=== PATIENT | male | born 1940 | race Caucasian/White ===

== ENCOUNTER → 2020-02-19 14:51 | Outpatient (CLI) | payer MEDICARE, BC, SELFPAY | PROVIDERS: PCP Family Medicine; Visit Provider Family Medicine | DX: Z03.818 Encounter for observation for suspected exposure to other biological agents ruled out (principal) | CPT/HCPCS: U0003 ==

== ENCOUNTER 2020-05-28 15:55 | Emergency (ER) | payer MEDICARE, BC, SELFPAY ==
[2020-05-28 15:57] VITALS: BP 153/84; PULSE 64; RESP 16; TEMP 37.1; O2SAT 98; BMI 29.5
--- NOTE | 2020-05-28 16:18 | CT_ITS ---
PROCEDURE: CT ABDOMEN PELVIS WO CON CLINICAL INDICATION: flank pain Right flank pain with hematuria COMPARISON: No exams were available for comparison TECHNIQUE: Axial images obtained with sagittal and coronal reformats. All CT scans at the facility use one or more dose reduction, viz: automated exposure control, ma/kV adjustment per patient size (including targeted exams where dose is matched to indication, i.e. head), or iterative reconstruction technique. FINDINGS: LOWER THORAX: Scarring and/or atelectatic changes are present in the lung bases with changes of COPD. Coronary artery calcifications are present. There is a small hiatal hernia. ABDOMEN & PELVIS: The gallbladder has an unremarkable appearance. There are however scattered calcifications in the the region of the biliary tree in the central aspect of the liver which could be due to small stones within the biliary radicles. Multiple punctate splenic calcifications are present consistent with old granulomatous disease. There is some calcification also in the head of the pancreas region. The adrenal glands are unremarkable. A hyperdense nodule projects along the anterior aspect of the left kidney measuring 2 cm at 28 Hounsfield units. This may be due to proteinaceous or hemorrhagic cyst. Follow-up ultrasound recommended. There is a 3.4 cm right renal cyst. There is stranding of the perinephric renal fat on both sides. A stone is present in the mid aspect of the right ureter at 5 mm with mild dilatation of the collecting system proximal to this area.. This is at the L4-5 level. Status post right hemicolectomy with patent anastomosis between the large and small bowel No intestinal obstruction or free air. There are multiple colonic diverticula. No evidence of diverticulitis. No intestinal obstruction or free air. There is dense calcification of the aortoiliac vessels with tortuosity there are degenerative changes in the lumbar spine. Moderate wedging is present involving T11 and T12 vertebral body. There is mild retropulsion of the posterior superior aspect of T12 of approximately 3 mm. There is a small umbilical hernia containing fat. There is an old left superior pubic ramus fracture IMPRESSION: 1. 5 mm stone in the mid aspect of the right ureter with mild right hydroureteronephrosis. 2. Hyperdense nodule of the left kidney. Suggest ultrasound for further evaluation. This could represent a proteinaceous cyst or hemorrhagic cyst. Neoplasm however is not excluded. 3. Calcifications within the biliary tree in the central aspect of the liver possibly due to small stones. Follow-up suggested. 4. Other nonacute findings as described above. 5. Colonic diverticulosis without diverticulitis. Status post right hemicolectomy 6. Other nonacute findings as described above. Dictated by: Gabriel Birmingham MD 05/28/2020 18:36 Gabriel Birmingham MD in [place] 05/28/2020 18:36
[2020-05-28 16:45] LABS: Alanine Aminotransferase 34 U/L (12-78); Albumin Level 4.3 g/dl (3.5-5.0); Albumin/Globulin Ratio 1.5 (1.1-1.8); Alkaline Phosphatase 70 U/L (38-126); Aspartate Amino Transferase 38 U/L (17-59); Blood Urea Nitrogen 23 mg/dl (9-20); Calcium 9.4 mg/dl (8.4-10.2); Carbon Dioxide 24 mmol/L (22.0-30.0); Chloride 105 mmol/L (98-107); Creatinine Clearance Estimated 66 mL/min (50-200); Estimated Glomerular Filt Rate 81 ml/min (>60); GFR (African American) 98 ML/MIN (>60); Globulin 2.9 g/dL (1.3-3.2); Glucose 141 mg/dl (74-100); Sodium 139 mmol/L (136-145); Total Protein,Serum 7.2 g/dl (6.3-8.2)
[2020-05-28 16:50] VITALS: BP 110/60; PULSE 52; RESP 18; O2SAT 92
--- NOTE | 2020-05-28 16:52 | HMH.EDGENADL ---
ED Disposition Clinical Impression: Right ureteral calculus Disposition: Home, Self-Care Condition on Discharge: Good Instructions: DI for Kidney Stones Additional Instructions: Additional instructions for KIDNEY STONE (URETERAL CALCULUS): See a urologist at the [facility] as soon as possible for further evaluation. Call for appointment. drink plenty of fluids. Strain your urine and save any stones you catch. Return immediately if you develop a fever or have uncontrollable vomiting or uncontrollable pain. Additional instructions for CONTROLLED SUBSTANCES: You have been prescribed a medication that is a controlled substance. Controlled substances include pain medications known as opiates and sedative nerve medications known as benzodiazepines. Tramadol, fioricet, and gabapentin are also controlled substances. Some common opiates include: Codeine (such as Tylenol #3) Hydrocodone (Vicodin, Lortab, Lorcet, [place]) Oxycodone (Percocet, Percodan, Oxycodone, Oxy IR) Some common benzodiazepines include: Diazepam (Valium) Lorazepam (Ativan) Alprazolam (Xanax) Clonazepam (Klonopin) Oxazepam (Serax) All of these controlled substances are highly addictive and frequently abused. Misuse can and frequently does lead to addiction as well as overdose and . Medication should be stored in a locked cabinet or other secure storage unit. Do not store the medication in a motor vehicle. Short term supplies, 3 days or less, are prescribed because of the highly addictive nature of the medication. Any of the controlled substance medication NOT taken should be disposed of properly and NOT SAVED. The recommended method of disposing of unused medications is: Place the medicines in a sealable plastic bag. If the medicine is a solid, crush it or add water to dissolve it. Add something undesirable (cat litter, coffee grounds, etc.) Dispose of sealed bag in household trash Do not flush or pour unused medicines down a sink or drain. Controlled substances should not be shared, given away or sold. Because of the addictive nature and frequent abuse, these medications are sometimes stolen. These medications should be kept in a safe place where they cannot be stolen. Do not keep them in your car or purse. Lost or stolen prescriptions for controlled substances WILL NOT BE REFILLED in this emergency department, regardless of whether a police report was filed. Prescriptions: Tramadol HCl [Tramadol 50mg Tab] 50 mg PO Q6HP PRN #12 tab PRN Reason: Moderate Pain Prescription Printed Tamsulosin HCl [Flomax 0.4mg capsule] 0.4 mg PO HS #10 cap.er.24h Prescription Printed Ondansetron [Zofran 4mg ODT] 4 mg PO TIDP PRN #10 tab.rapdis PRN Reason: Nausea And Vomiting Prescription Printed Referrals: Provider,Referral, MD [Primary Care Provider] - - Critical Care Critical Care Time: No Attestation: On 05/28/20, the high probability of a clinically significant, sudden or life threatening deterioration of the following system(s) required my full and direct attention, intervention and personal management. The time I documented below is in addition to time spent performing reported procedures but includes the following listed in this critical care notation. Medical Decision Making - Thomas Inquiry Pt receiving controlled substance: Yes Thomas was queried for this patient: Yes Reference #:: [id number] Risks and benefits of using a controlled substance: were discussed with pt by me Comment: 0 rxs. Vital Signs: 05/28/20 15:57 05/28/20 16:50 Temperature 98.8 F Temperature Source Oral Pulse Rate [Radial] 64 52 L Respiratory Rate 16 18 Blood Pressure [Right Arm] 153/84 H 110/60 Blood Pressure Mean [Right Arm] 107 76 Blood Pressure Source [Right Arm] Automatic Cuff Blood Pressure Position [Right Arm] Sitting 02 Sat by Pulse Oximetry 98 92 L Oxygen Delivery Method Room Air Room Air - Lab Data Lab Results 05/18
[2020-05-28 17:00] LABS: Microscopic, Urine URINE MICROSCOPIC (MICROSCOPIC)
--- NOTE | 2020-05-28 17:00 | PC.NURSE ---
pt to radiology
[2020-05-28 17:03] LABS: Appearance,Urine CLOUDY (Clear); Blood, Urine 3+ (Negative); Color,Urine DK YELLOW (Yellow); Glucose,Urine (UA) Negative (Negative); Ketones,Urine TRACE (Negative); Leukocyte Esterase,Urine Negative (Negative); Nitrate,Urine Negative (Negative); PH,Urine 5.5 (5.0-8.5); Protein,Urine 1+ (Negative); Specific Gravity, Urine >= 1.030 (1.005-1.030); Urobilinogen,Urine 0.2 EU/dl (0.2)
[2020-05-28 17:09] LABS: Bilirubin,Urine Negative (Negative)
[2020-05-28 17:13] LABS: Basophils % 0.5 % (0.1-2.0); Eosinophils # 0.2 K/mm3 (0.0-0.4); Hematocrit 47.8 % (42.0-52.0); Hemoglobin 15.7 g/dL (14.1-18.0); Lymphocytes # 1.5 K/mm3 (0.7-4.5); Lymphocytes % 28.7 % (10-50); Mean Corpuscular HGB Conc 32.8 g/dL (31.8-35.4); Mean Corpuscular Hemoglobin 31.8 pg (27.0-31.2); Mean Corpuscular Volume 96.9 fl (80-94); Mean Platelet Volume 7.8 fl (7.4-10.4); Monocytes # 0.3 K/mm3 (0.1-1.0); Monocytes % 6.3 % (1.7-9.3); Neutrophils # 3.2 K/mm3 (1.8-7.8); Neutrophils % 61.4 % (37.0-80.0); Platelet Count 152 K/mm3 (142-424); Red Blood Count 4.93 M/mm3 (4.60-6.20); White Blood Count 5.2 K/mm3 (4.8-10.8)
[2020-05-28 17:58] LABS: RBC,Urine 20-50 #/hpf (0-3)
[2020-05-28 17:59] LABS: Amorphous Sediment,Urine 3+ /lpf; Bacteria,Urine 3+ /lpf
[2020-05-28 18:18] VITALS: BP 109/62; PULSE 56; RESP 16; TEMP 36.6; O2SAT 98
== END 2020-05-28 18:20 | disposition home or self-care (01) ==
PROVIDERS: Emergency Provider Emergency Medicine
DX: N20.1 Calculus of ureter (principal); Z87.442 Personal history of urinary calculi; Z88.2 Allergy status to sulfonamides; Z88.5 Allergy status to narcotic agent; Z79.899 Other long term (current) drug therapy
CPT/HCPCS: 74176; 80053; 81001; 85025; 87086; 96365; 96375; 99283; J2405

== ENCOUNTER 2020-05-31 20:40 | Emergency (ER) | payer MEDICARE, BC, SELFPAY ==
[2020-05-31 20:47] VITALS: BP 156/83; PULSE 77; RESP 16; TEMP 36.6; O2SAT 94; BMI 29.5
[2020-05-31 21:00] VITALS: BP 139/74; PULSE 72; RESP 17; O2SAT 94
--- NOTE | 2020-05-31 21:13 | CT_ITS ---
Procedure: CT ABDOMEN PELVIS WO CON Referring Doctor: Michel Marroquin Patient Age:79Y CLINICAL INDICATION: flank pain abdominal pain with nausea and vomiting 2 weeks. Flank pain. Recent 05/28/2020 CT diagnosed right ureteral stone. COMPARISON: CT CT ABDOMEN PELVIS WO CON from 05/28/2020 TECHNIQUE: No IV contrast. No oral contrast Helical axial images obtained with sagittal and coronal reformats. All CT scans at the facility use one or more dose reduction, viz: automated exposure control, ma/kV adjustment per patient size (including targeted exams where dose is matched to indication, i.e. head), or iterative reconstruction technique. FINDINGS: Lower thorax: Bibasilar parenchymal scarring and atelectasis. Additional atelectasis and minimal airspace disease at left posterior sulcus hyper grass since previous study.. Mild cardiomegaly. Small hiatal hernia ABDOMEN: Liver: No masses or biliary dilatation. Gallbladder: History states cholecystectomy but there is a thin fluid-filled structure in the gallbladder fossa. Could reflect residual a generous cystic duct... Of there is some small calcifications centrally at the liver. More likely vascular calcification and less likely small stones within central biliary duct. Common duct normal diameter 2 Pancreas: No masses or peripancreatic fluid collections. Spleen: Normal size; numerous scattered granulomatous calcifications Adrenals: unremarkable ----- tract - Right obstructive uropathy features more pronounced today versus recent CT 05/28/2020 However there has been significant distal migration right ureteral stone since recent CT 05/28/2020.. Previously it was to the right of L4/5 level, but now has passed distally and seen projected over the posterior aspect of urinary bladder-most likely on the verge of passing through the final final lips of right UVJ, if not having just passed through already.. This stone measuring 3.4 x 4.4 mm on axial image 93.. Of there is more pronounced now moderate hydronephrosis at the right kidney as well as diffuse dilatation of the right ureter-both features have notably progressed since previous CT study . Other observations right kidney: Tiny faint just over 1 mm calculus seen at mid right kidney axial image 44. Barely evident. Stable benign appearing cyst posterior aspect right kidney again extending off the posterior aspect of right kidney, measures up to 3.2cm Left kidney: No calculi seen at the left kidney. There is a 2.1 cm exophytic hyperdense nodule or hyperdense cyst extending anterior to the left kidney. this most likely reflects a hemorrhagic cyst of but warrants follow-up.(Bosniak 2 cyst) Again recommend follow-up ultrasound as suggestion on previous CT . There is also a 12.8 mm low-density benign-appearing cyst lower pole left kidney. Mild stranding at the perinephric fat bilaterally again noted Left ureter. Unremarkable. Urinary bladder: As described above the calculus is projected over the right posterior aspect of urinary bladder. Otherwise bladder demonstrates subtle posterior wall thickening to the left, as suggested on sagittal image 55-53.. Also borderline/mild wall thickening anteriorly at urinary bladder is seen on axial image 94. Warrants follow-up UA for these features as well Mild enlarged prostate with central calcification, measures up to 4 cm height and wide . GI tract.-------- Likely small sliding hiatal hernia Stomach. Fluid filled distended stomach with fluid at the distal esophagus reflecting reflux, possible hiatal hernia small bowel: A few small to moderate air-fluid levels at the proximal and mid small bowel with slight increased fluid but could reflect a minor ileus but unimpressive. . No varun
[2020-05-31 21:23] LABS: Alanine Aminotransferase 21 U/L (12-78); Albumin Level 4.3 g/dl (3.5-5.0); Albumin/Globulin Ratio 1.5 (1.1-1.8); Alkaline Phosphatase 63 U/L (38-126); Anion Gap 13.6 mEq/L (5-15); Aspartate Amino Transferase 24 U/L (17-59); Basophils % 0.2 % (0.1-2.0); Bilirubin,Total 1.2 mg/dl (0.2-1.3); Blood Urea Nitrogen 23 mg/dl (9-20); Calcium 9.2 mg/dl (8.4-10.2); Carbon Dioxide 29 mmol/L (22.0-30.0); Chloride 97 mmol/L (98-107); Creatinine Clearance Estimated 51 mL/min (50-200); Eosinophils # 0.1 K/mm3 (0.0-0.4); Eosinophils % 0.9 % (0.1-12.0); Estimated Glomerular Filt Rate 53 ml/min (>60); GFR (African American) 64 ML/MIN (>60); Globulin 2.9 g/dL (1.3-3.2); Glucose 126 mg/dl (74-100); Hematocrit 45.4 % (42.0-52.0); Hemoglobin 15.1 g/dL (14.1-18.0); Lymphocytes # 0.8 K/mm3 (0.7-4.5); Lymphocytes % 13.5 % (10-50); Mean Corpuscular HGB Conc 33.1 g/dL (31.8-35.4); Mean Corpuscular Hemoglobin 32.1 pg (27.0-31.2); Mean Corpuscular Volume 97.1 fl (80-94); Mean Platelet Volume 8.5 fl (7.4-10.4); Monocytes # 0.5 K/mm3 (0.1-1.0); Monocytes % 7.9 % (1.7-9.3); Neutrophils # 4.5 K/mm3 (1.8-7.8); Neutrophils % 77.4 % (37.0-80.0); Platelet Count 134 K/mm3 (142-424); Potassium 4.6 mmoL/L (3.5-5.1); Red Blood Count 4.68 M/mm3 (4.60-6.20); Red Cell Distribution Width 13.5 % (11.5-17.5); Sodium 135 mmol/L (136-145); Total Protein,Serum 7.2 g/dl (6.3-8.2); White Blood Count 5.8 K/mm3 (4.8-10.8)
[2020-05-31 21:30] VITALS: BP 132/78; PULSE 70; RESP 17; O2SAT 93
[2020-05-31 22:00] VITALS: BP 124/66; PULSE 70; RESP 17; O2SAT 94
[2020-05-31 22:30] VITALS: BP 126/64; PULSE 74; RESP 17; O2SAT 95
--- NOTE | 2020-05-31 22:36 | PC.NURSE ---
Cara speaking with Dr.Crowe amrx this time.
--- NOTE | 2020-05-31 22:52 | HMH.EDGENADL ---
ED Disposition Clinical Impression: Kidney stones Disposition: Home, Self-Care Condition on Discharge: Good Instructions: DI for Acute Pain -- Adult Additional Instructions: Please follow-up with Dr. Wei on Tuesday. Referrals: Tino Gordon [Primary Care Provider] - - Critical Care Critical Care Time: No Attestation: On 05/31/20, the high probability of a clinically significant, sudden or life threatening deterioration of the following system(s) required my full and direct attention, intervention and personal management. The time I documented below is in addition to time spent performing reported procedures but includes the following listed in this critical care notation. Medical Decision Making - Medical Records Medical records reviewed: Yes: I reviewed the patient's medical records. - Thomas Inquiry Pt receiving controlled substance: No Vital Signs: 05/31/20 20:47 05/31/20 21:00 05/31/20 21:30 Temperature 97.9 F Temperature Source Oral Pulse Rate [Right] 77 72 70 Respiratory Rate 16 17 17 Blood Pressure [Right Arm] 156/83 H 139/74 132/78 Blood Pressure Mean [Right Arm] 107 95 96 Blood Pressure Source [Right Arm] Automatic Cuff Automatic Cuff Automatic Cuff Blood Pressure Position [Right Arm] Supine Supine Supine 02 Sat by Pulse Oximetry 94 L 94 L 93 L Oxygen Delivery Method Room Air Room Air Room Air 05/31/20 22:00 05/31/20 22:30 Temperature Temperature Source Pulse Rate [Right] 70 74 Respiratory Rate 17 17 Blood Pressure [Right Arm] 124/66 126/64 Blood Pressure Mean [Right Arm] 85 84 Blood Pressure Source [Right Arm] Automatic Cuff Automatic Cuff Blood Pressure Position [Right Arm] Supine Supine 02 Sat by Pulse Oximetry 94 L 95 Oxygen Delivery Method Room Air Room Air - Lab Data Lab results reviewed: Yes: I reviewed the patient's lab results. Lab Results 05/31/20 21:00: WBC 5.8, RBC 4.68, Hgb 15.1, Hct 45.4, MCV 97.1 H, MCH 32.1 H, MCHC 33.1, RDW 13.5, Plt Count 134 L, MPV 8.5, Neut % (Auto) 77.4, Lymph % (Auto) 13.5, [place] % (Auto) 7.9, Eos % (Auto) 0.9, Baso % (Auto) 0.2, Neut # (Auto) 4.5, Lymph # (Auto) 0.8, [place] # (Auto) 0.5, Eos # (Auto) 0.1, Baso # (Auto) 0.0 05/31/20 21:00: Sodium 135 L, Potassium 4.6, Chloride 97 L, Carbon Dioxide 29, Anion Gap 13.6, BUN 23 H, Creatinine 1.30 H, Estimated Creat Clear 51, Estimated GFR 53 L, Est GFR ( Amer) 64, Glucose 126 H, Calcium 9.2, Total Bilirubin 1.2, AST 24, ALT 21, Alkaline Phosphatase 63, Total Protein 7.2, Albumin 4.3, Globulin 2.9, Albumin/Globulin Ratio 1.5 Result diagrams: 05/31/20 21:00 05/31/20 21:00 Orders (Tests/Meds): ED MEDICATIONS Generic Name Dose Route Start Last Admin Trade Name Freq PRN Reason Stop Dose Admin Sodium Chloride 1,000 mls @ 999 mls/hr 05/31/20 21:15 05/31/20 21:08 Sod Chlor 0.9% 1000ml Bag IV 05/31/20 22:15 999 mls/hr .[id number] MONIKA Administration Discontinued Medications Generic Name Dose Route Start Last Admin Trade Name Freq PRN Reason Stop Dose Admin Ketorolac Tromethamine 30 mg 05/31/20 21:05 05/31/20 21:08 Ketorolac 30mg/Ml Vial IV 05/31/20 21:06 30 mg ONCE ONE Administration Ondansetron HCl 4 mg 05/31/20 21:05 05/31/20 21:08 Ondansetron 4mg/2ml Vial IV 05/31/20 21:06 4 mg ONCE ONE Administration ORDERS Category Date Time Status CT abdomen pelvis wo con Stat Cat Scan 05/31/20 21:13 Taken - CT Data CT Scan: Abdomen, Pelvis Time Received: 22:00 Preliminary Findings: Abnormal (5 mm stone in the right UVJ similar to previous finding on Tuesday.) - Reevaluation(s) Time: 22:57 Reevaluation #1: Patient flu improved with fluids antiemetics and pain medication Medical Decision Narrative: I spoke to Dr. Wei about this patient stating that there is been no movement of the stone since Tuesday he agreed to see the patient in his office on [place] morning. General Adult HPI - General Chief complaint: PAIN Stated compl
[2020-05-31 23:31] VITALS: BP 137/69; PULSE 71; RESP 16; TEMP 36.6; O2SAT 94
== END 2020-05-31 23:34 | disposition home or self-care (01) ==
PROVIDERS: Emergency Provider Family Medicine; PCP Internal Medicine Nephrology
DX: N13.2 Hydronephrosis with renal and ureteral calculous obstruction (principal); I10 Essential (primary) hypertension; E78.5 Hyperlipidemia, unspecified; Z87.891 Personal history of nicotine dependence; Z79.899 Other long term (current) drug therapy; Z88.2 Allergy status to sulfonamides; Z88.5 Allergy status to narcotic agent
CPT/HCPCS: 74176; 80053; 85025; 96365; 96375; 99283; J2405

== ENCOUNTER 2021-08-13 15:50 | Emergency (ER) | payer MEDICARE, BC, OTHER, SELFPAY ==
[2021-08-13 15:52] VITALS: BP 145/85; PULSE 109; RESP 18; TEMP 37.8; O2SAT 94; BMI 29.5
--- NOTE | 2021-08-13 16:03 | XR_ITS ---
PROCEDURE INFORMATION: Exam: XR Chest Exam date and time: 08/13/2021 4:03 PM Age: 80 years old Clinical indication: Cough TECHNIQUE: Imaging protocol: XR of the chest. Views: 1 view. COMPARISON: CR XR CHEST 2V 07/01/2019 6:45 AM FINDINGS: Lungs: Atelectasis and/or early infiltrative changes noted within the right lung base. Bilateral hyperinflation is present. Pleural spaces: Unremarkable. No pleural effusion. No pneumothorax. Heart/Mediastinum: Heart demonstrates mild diffuse enlargement. Vasculature: The vasculature demonstrates diffuse moderate atherosclerotic calcification. Bones/joints: The thoracic spine demonstrates mild degenerative changes at multiple levels. IMPRESSION: 1. Atelectasis and/or early infiltrative changes noted within the right lung base. 2. Bilateral hyperinflation is present. 3. Mild cardiomegaly.
--- NOTE | 2021-08-13 16:04 | HMH.EDGENADL ---
ED Disposition Clinical Impression: COVID-19 Disposition: Home, Self-Care Condition on Discharge: Fair Instructions: DI for COVID-19 (Suspected or Confirmed ) Additional Instructions: You have been evaluated for cough, body aches, fatigue, diagnosed with COVID-19. Please continue to monitor your pulse oximeter level at home. Use supplemental oxygen if level is less than 92%. Take steroids daily. Zofran as needed for nausea. Follow-up with your primary care doctor for symptom recheck within 24 hours. Return to the emergency department once for any new or worsening symptoms, shortness of breath or other concerns. Prescriptions: dexAMETHasone [Dexamethasone] 6 mg PO DAILY #5 tab Transmission Status: Received by [facility] #[id number] ondansetron HCL [Ondansetron 4mg tab*] 4 mg PO Q6 PRN #12 tab PRN Reason: Nausea Transmission Status: Received by [facility] #[id number] Referrals: Provider,Referral, [Primary Care Provider] - Time of Disposition: 19:33 - Critical Care Critical Care Time: No Attestation: On , the high probability of a clinically significant, sudden or life threatening deterioration of the following system(s) required my full and direct attention, intervention and personal management. The time I documented below is in addition to time spent performing reported procedures but includes the following listed in this critical care notation. Medical Decision Making - Medical Records Medical records reviewed: Yes: I reviewed the patient's medical records. - Thomas Inquiry Pt receiving controlled substance: No Vital Signs: 08/13/21 15:52 08/13/21 18:00 08/13/21 18:31 Temperature 100.0 F H Temperature Source Oral Pulse Rate 100 H 96 H Pulse Rate [Left Radial] 109 H Respiratory Rate 18 Blood Pressure 133/77 139/79 Blood Pressure [Right Arm] 145/85 H Blood Pressure Mean [Right Arm] 105 Blood Pressure Source Blood Pressure Source [Right Arm] Automatic Cuff Blood Pressure Position Blood Pressure Position [Right Arm] Sitting 02 Sat by Pulse Oximetry 94 L 92 L 92 L Oxygen Delivery Method Room Air 08/13/21 20:16 Temperature 98.5 F Temperature Source Oral Pulse Rate 88 Pulse Rate [Left Radial] Respiratory Rate 22 Blood Pressure 142/76 H Blood Pressure [Right Arm] Blood Pressure Mean [Right Arm] Blood Pressure Source Automatic Cuff Blood Pressure Source [Right Arm] Blood Pressure Position Sitting Blood Pressure Position [Right Arm] 02 Sat by Pulse Oximetry Oxygen Delivery Method Room Air - Lab Data Lab Results 08/13/21 16:18: WBC 7.2, RBC 5.30, Hgb 17.3, Hct 52.2 H, MCV 98.3 H, MCH 32.5 H, MCHC 33.1, RDW 13.5, Plt Count 147, MPV 8.5, Neut % (Auto) 89.8 H, Lymph % (Auto) 4.9 L, [place] % (Auto) 3.9, Eos % (Auto) 0.7, Baso % (Auto) 0.7, Neut # (Auto) 6.5, Lymph # (Auto) 0.4 L, [place] # (Auto) 0.3, Eos # (Auto) 0.1, Baso # (Auto) 0.1, Total Counted 100, Neutrophils % (Manual) 86 H, Lymphocytes % (Manual) 9 L, Monocytes % (Manual) 5, Platelet Estimate Normal, RBC Morphology Normal 08/13/21 16:18: Sodium 136, Potassium 4.4, Chloride 104, Carbon Dioxide 24, Anion Gap 12.4, BUN 19, Creatinine 0.80, Estimated Creat Clear 65, Estimated GFR 93, Est GFR ( Amer) 113, Glucose 110 H, Calcium 8.9, Total Bilirubin 1.2, AST 39, ALT 26, Alkaline Phosphatase 64, Total Protein 7.6, Albumin 4.5, Globulin 3.1, Albumin/Globulin Ratio 1.5, Lipase 83 08/13/21 16:18: Influenza Type A Ag Negative, Influenza Type B Ag Negative 08/13/21 16:18: SARS-CoV-2 IgG Ab (Rapid) Positive A, SARS-CoV-2 IgM Ab (Rapid) Negative 08/13/21 17:21: SARS-CoV-2 (PCR) Detected A, Influenza A Untype (PCR) Not detected, Influenza Type B (PCR) Not detected Result diagrams: 08/13/21 16:18 08/13/21 16:18 Orders (Tests/Meds): ED MEDICATIONS Discontinued Medications Generic Name Dose Route Start Last Admin Trade Name Freq PRN Reason Stop Dose Admin Acetaminophen 650 mg 08/13/21 16:13 08/13/21
--- NOTE | 2021-08-13 16:08 | PC.NURSE ---
Patient given ice chips and ice water at bedside.
--- NOTE | 2021-08-13 16:19 | PC.NURSE ---
Radiology at bedside
[2021-08-13 16:48] LABS: Basophils # 0.1 K/mm3 (0-0.2); Basophils % 0.7 % (0.1-2.0); Eosinophils # 0.1 K/mm3 (0.0-0.4); Eosinophils % 0.7 % (0.1-12.0); Hematocrit 52.2 % (42.0-52.0); Hemoglobin 17.3 g/dL (14.1-18.0); Lymphocytes # 0.4 K/mm3 (0.7-4.5); Lymphocytes % 4.9 % (10-50); Mean Corpuscular HGB Conc 33.1 g/dL (31.8-35.4); Mean Corpuscular Hemoglobin 32.5 pg (27.0-31.2); Mean Corpuscular Volume 98.3 fl (80-94); Mean Platelet Volume 8.5 fl (7.4-10.4); Monocytes # 0.3 K/mm3 (0.1-1.0); Monocytes % 3.9 % (1.7-9.3); Neutrophils # 6.5 K/mm3 (1.8-7.8); Neutrophils % 89.8 % (37.0-80.0); Platelet Count 147 K/mm3 (142-424); Red Cell Distribution Width 13.5 % (11.5-17.5); White Blood Count 7.2 K/mm3 (4.8-10.8)
[2021-08-13 16:53] LABS: MANUAL DIFFERENTIAL MANUAL DIFFERENTIAL (MANUAL DIFF)
[2021-08-13 16:57] LABS: Chloride 104 mmol/L (98-107); Potassium 4.4 mmoL/L (3.5-5.1); Sodium 136 mmol/L (136-145)
[2021-08-13 16:59] LABS: Alanine Aminotransferase 26 U/L (12-78); Aspartate Amino Transferase 39 U/L (17-59); Blood Urea Nitrogen 19 mg/dl (9-20); Creatinine Clearance Estimated 65 mL/min (50-200); Estimated Glomerular Filt Rate 93 ml/min (>60); GFR (African American) 113 ML/MIN (>60)
[2021-08-13 17:00] LABS: Albumin Level 4.5 g/dl (3.5-5.0); Albumin/Globulin Ratio 1.5 (1.1-1.8); Alkaline Phosphatase 64 U/L (38-126); Anion Gap 12.4 mEq/L (5-15); Bilirubin,Total 1.2 mg/dl (0.2-1.3); Calcium 8.9 mg/dl (8.4-10.2); Carbon Dioxide 24 mmol/L (22.0-30.0); Globulin 3.1 g/dL (1.3-3.2); Glucose 110 mg/dl (74-100); Lipase 83 U/L (23-300); Total Protein,Serum 7.6 g/dl (6.3-8.2)
[2021-08-13 17:16] LABS: Coronavirus 19 IgG Antibody Positive (Negative); Coronavirus 19 IgM Antibody Negative (Negative)
[2021-08-13 17:20] LABS: Lymphocytes % 9 % (10-50); Monocytes % 5 % (2-9); Neutrophils % 86 % (42-76); Platelet Estimate Normal; RBC Morphology Normal; Total Cells Counted 100
[2021-08-13 17:23] LABS: Influenza A, PCR Not Detected (NotDetected); Influenza B, PCR Not Detected (NotDetected)
[2021-08-13 18:00] VITALS: BP 133/77; PULSE 100; O2SAT 92
[2021-08-13 18:15] LABS: Coronavirus 19, PCR Detected (NotDetected)
[2021-08-13 18:31] VITALS: BP 139/79; PULSE 96; O2SAT 92
--- NOTE | 2021-08-13 19:34 | PC.NURSE ---
Called [facility] and left message for operations officer staff to called back
--- NOTE | 2021-08-13 19:40 | PC.NURSE ---
faxed order and facesheet for oxygen to [facility] @ this time
[2021-08-13 20:16] VITALS: BP 142/76; PULSE 88; RESP 22; TEMP 36.9; O2SAT 94
== END 2021-08-13 20:22 | disposition home or self-care (01) ==
PROVIDERS: Emergency Provider Emergency Medicine
DX: U07.1 COVID-19 (principal); I10 Essential (primary) hypertension; E78.5 Hyperlipidemia, unspecified
CPT/HCPCS: 71045; 80053; 83690; 85007; 85025; 86328; 87275; 87276; 96365; 96375; 99283; C9803; J2405; U0003; U0005

== ENCOUNTER → 2021-08-17 14:21 | Outpatient (CLI) | payer MEDICARE, BC, OTHER, SELFPAY | PROVIDERS: Visit Provider Nurse Practitioner | DX: U07.1 COVID-19 (principal) | CPT/HCPCS: C9803; U0003; U0005 ==

== ENCOUNTER 2021-09-11 09:15 | Emergency (ER) | payer MEDICARE, BC, OTHER, SELFPAY ==
[2021-09-11] VITALS (13 sets, daily range): BP systolic 111–187; BP diastolic 68–108; PULSE 69–115; RESP 15–24; TEMP 36.8–38.8; O2SAT 92–98; BMI 29.3
--- NOTE | 2021-09-11 09:29 | PC.NURSE ---
ER at bedside
--- NOTE | 2021-09-11 09:39 | HMH.EDABDPAI ---
ED Disposition Clinical Impression: Gastroenteritis Disposition: Home, Self-Care Condition on Discharge: Good Instructions: DI for Viral Gastroenteritis -- Adult Prescriptions: Ondansetron [Zofran 4mg ODT] 4 mg PO BIDP PRN #10 tab PRN Reason: Nausea Transmission Status: Pending to [facility] #[id number] Referrals: Provider,Referral, [Primary Care Provider] - - Critical Care Critical Care Time: No Attestation: On 09/11/21, the high probability of a clinically significant, sudden or life threatening deterioration of the following system(s) required my full and direct attention, intervention and personal management. The time I documented below is in addition to time spent performing reported procedures but includes the following listed in this critical care notation. Medical Decision Making - Medical Records Medical records reviewed: Yes: I reviewed the patient's medical records. - Thomas Inquiry Pt receiving controlled substance: No Vital Signs: 09/11/21 09:17 09/11/21 10:30 09/11/21 11:00 Temperature 98.3 F Temperature Source Oral Pulse Rate 87 90 Pulse Rate [Radial] 80 Respiratory Rate 16 15 18 Blood Pressure 180/87 H 184/108 H Blood Pressure [Right Arm] 181/93 H Blood Pressure Mean 118 133 Blood Pressure Mean [Right Arm] 122 Blood Pressure Position Blood Pressure Position [Right Arm] Sitting 02 Sat by Pulse Oximetry 98 95 95 Oxygen Delivery Method Room Air 09/11/21 11:30 09/11/21 12:00 09/11/21 12:30 Temperature Temperature Source Pulse Rate 85 100 H 99 H Pulse Rate [Radial] Respiratory Rate 16 17 17 Blood Pressure 170/100 H 170/91 H 173/102 H Blood Pressure [Right Arm] Blood Pressure Mean 123 121 129 Blood Pressure Mean [Right Arm] Blood Pressure Position Sitting Sitting Blood Pressure Position [Right Arm] 02 Sat by Pulse Oximetry 95 96 95 Oxygen Delivery Method Room Air 09/11/21 13:00 09/11/21 13:30 09/11/21 13:31 Temperature 102 F H Temperature Source Pulse Rate 69 115 H 102 H Pulse Rate [Radial] Respiratory Rate 16 22 16 Blood Pressure 187/101 H 134/87 134/87 Blood Pressure [Right Arm] Blood Pressure Mean 133 102 Blood Pressure Mean [Right Arm] Blood Pressure Position Sitting Sitting Blood Pressure Position [Right Arm] 02 Sat by Pulse Oximetry 95 92 L 95 Oxygen Delivery Method Room Air Room Air 09/11/21 14:00 09/11/21 14:30 09/11/21 15:00 Temperature Temperature Source Pulse Rate 113 H 112 H 114 H Pulse Rate [Radial] Respiratory Rate 15 16 16 Blood Pressure 127/78 120/72 111/68 Blood Pressure [Right Arm] Blood Pressure Mean 94 93 82 Blood Pressure Mean [Right Arm] Blood Pressure Position Blood Pressure Position [Right Arm] 02 Sat by Pulse Oximetry 95 95 95 Oxygen Delivery Method - Lab Data Lab Results 09/11/21 09:35: WBC 9.6, RBC 5.49, Hgb 18.3 H, Hct 52.7 H, MCV 95.9 H, MCH 33.2 H, MCHC 34.6, RDW 13.2, Plt Count 202, MPV 7.5, Neut % (Auto) 88.1 H, Lymph % (Auto) 6.0 L, [place] % (Auto) 3.5, Eos % (Auto) 2.2, Baso % (Auto) 0.2, Neut # (Auto) 8.4 H, Lymph # (Auto) 0.6 L, [place] # (Auto) 0.3, Eos # (Auto) 0.2, Baso # (Auto) 0.0, Total Counted 100, Neutrophils % (Manual) 92 H, Band Neutrophils % 1.0, Lymphocytes % (Manual) 1 L, Monocytes % (Manual) 5, Eosinophils % (Manual) 1, Platelet Estimate Normal 09/11/21 09:35: Sodium 139, Potassium 4.1, Chloride 102, Carbon Dioxide 26, Anion Gap 15.1 H, BUN 17, Creatinine 0.80, Estimated Creat Clear 64, Estimated GFR 93, Est GFR ( Amer) 112, Glucose 118 H, Calcium 8.8, Total Bilirubin 1.2, AST 43, ALT 40, Alkaline Phosphatase 84, Total Protein 8.5 H, Albumin 5.0, Globulin 3.5 H, Albumin/Globulin Ratio 1.4, Lipase 189 09/11/21 10:20: SARS-CoV-2 (PCR) Not detected, Influenza A Untype (PCR) Not detected, Influenza Type B (PCR) Not detected 09/11/21 14:24: Urine Color Yellow, Urine Appearance Clear, Urine pH 5.5, Ur Specific [place] >=
[2021-09-11 09:42] LABS: Basophils % 0.2 % (0.1-2.0); Eosinophils # 0.2 K/mm3 (0.0-0.4); Eosinophils % 2.2 % (0.1-12.0); Hematocrit 52.7 % (42.0-52.0); Lymphocytes # 0.6 K/mm3 (0.7-4.5); Mean Corpuscular HGB Conc 34.6 g/dL (31.8-35.4); Mean Corpuscular Hemoglobin 33.2 pg (27.0-31.2); Mean Corpuscular Volume 95.9 fl (80-94); Mean Platelet Volume 7.5 fl (7.4-10.4); Monocytes # 0.3 K/mm3 (0.1-1.0); Monocytes % 3.5 % (1.7-9.3); Neutrophils # 8.4 K/mm3 (1.8-7.8); Neutrophils % 88.1 % (37.0-80.0); Platelet Count 202 K/mm3 (142-424); Red Blood Count 5.49 M/mm3 (4.60-6.20); Red Cell Distribution Width 13.2 % (11.5-17.5); White Blood Count 9.6 K/mm3 (4.8-10.8)
[2021-09-11 09:55] LABS: Chloride 102 mmol/L (98-107); MANUAL DIFFERENTIAL MANUAL DIFFERENTIAL (MANUAL DIFF)
[2021-09-11 09:56] LABS: Potassium 4.1 mmoL/L (3.5-5.1); Sodium 139 mmol/L (136-145)
[2021-09-11 09:58] LABS: Alanine Aminotransferase 40 U/L (12-78); Albumin/Globulin Ratio 1.4 (1.1-1.8); Alkaline Phosphatase 84 U/L (38-126); Anion Gap 15.1 mEq/L (5-15); Aspartate Amino Transferase 43 U/L (17-59); Bilirubin,Total 1.2 mg/dl (0.2-1.3); Blood Urea Nitrogen 17 mg/dl (9-20); Calcium 8.8 mg/dl (8.4-10.2); Carbon Dioxide 26 mmol/L (22.0-30.0); Creatinine Clearance Estimated 64 mL/min (50-200); Estimated Glomerular Filt Rate 93 ml/min (>60); GFR (African American) 112 ML/MIN (>60); Globulin 3.5 g/dL (1.3-3.2); Glucose 118 mg/dl (74-100); Lipase 189 U/L (23-300); Total Protein,Serum 8.5 g/dl (6.3-8.2)
--- NOTE | 2021-09-11 09:58 | ECG_ITS ---
APPROVED REPORT Exam: Resting ECG HR:81 bpm ECG Measurements Heart Rate 81 AXES AL 163 P 27 QRSd 106 QRS -62 QT 344 T 57 QTc 381 Conclusion SINUS RHYTHM PATTERN CONSISTENT WITH PULMONARY DISEASE INCOMPLETE RIGHT BUNDLE BRANCH BLOCK [90+ ms QRS DURATION, TERMINAL R IN V1/V2, 40+ ms S IN I/aVL/V4/V5/V6] LEFT ANTERIOR FASCICULAR BLOCK [QRS AXIS <= -45, QR IN I, RS IN II] LEFT VENTRICULAR HYPERTROPHY AND ST-T CHANGE [VOLTAGE CRITERIA PLUS ST/T ABNORMALITY] ABNORMAL ECG UNCONFIRMED REPORT Electronically signed by : Rodolfo Zaragoza MD 09/11/2021 19:17:47
[2021-09-11 10:16] LABS: Eosinophils % 1 % (0-3); Lymphocytes % 1 % (10-50); Monocytes % 5 % (2-9); Neutrophils % 92 % (42-76); Platelet Estimate Normal; Total Cells Counted 100
--- NOTE | 2021-09-11 10:27 | PC.NURSE ---
UPDATED PT'S FAMILY ON PLAN OF CARE
[2021-09-11 10:28] LABS: Coronavirus 19, PCR Not Detected (NotDetected); Influenza A, PCR Not Detected (NotDetected); Influenza B, PCR Not Detected (NotDetected)
[2021-09-11 10:50] LABS: Hemoglobin 18.3 g/dL (14.1-18.0)
--- NOTE | 2021-09-11 12:16 | CT_ITS ---
FINAL REPORT TECHNIQUE: Axial images through the abdomen and pelvis were performed without contrast. This study was performed with techniques to keep radiation doses as low as reasonably achievable, (ALARA). Individualized dose reduction techniques using automated exposure control or adjustment of mA and/or kV according to the patient's size were employed. CLINICAL HISTORY: vomiting COMPARISON: May 31, 2020 FINDINGS: Abdomen: There is scarring in the lung bases. There is a moderate hiatal hernia. The liver parenchyma is homogeneous. The gallbladder is present. The spleen, pancreas, and adrenals are unremarkable. There are cysts in both kidneys. A 3.2 cm exophytic structure arises from the right kidney demonstrating 9 Hounsfield units. A 2 cm exophytic structure arising from the anterior left kidney demonstrates 26 Hounsfield units. There is dense vascular calcification in the abdominal aorta and iliac vessels. There is pancolonic diverticulosis. Pelvis: There is marked atrophy of the right rectus femoris muscle. The urinary bladder is unremarkable. The appendix is not visualized. There is no pelvic mass or inflammation. IMPRESSION: Indeterminate exophytic renal masses favor complex benign cysts, stable from prior exam. Diverticulosis without evidence of diverticulitis. Moderate hiatal hernia. Reviewed, Interpreted and Dictated by Rohit Dunaway MD Transcribed by Ganesh White Authenticated by Rohit Dunaway MD on 09/11/2021 01:34:54 PM [facility]
--- NOTE | 2021-09-11 12:33 | PC.NURSE ---
Patient had small BM in depends; helped get him cleaned up; started vomiting again and notified AHSAN Jama
--- NOTE | 2021-09-11 12:38 | PC.NURSE ---
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
[2021-09-11 14:38] LABS: Microscopic, Urine URINE MICROSCOPIC (MICROSCOPIC)
[2021-09-11 14:40] LABS: Appearance,Urine CLEAR (Clear); Bilirubin,Urine Negative (Negative); Blood, Urine 1+ (Negative); Color,Urine YELLOW (Yellow); Glucose,Urine (UA) Negative (Negative); Ketones,Urine Negative (Negative); Leukocyte Esterase,Urine Negative (Negative); Nitrate,Urine Negative (Negative); PH,Urine 5.5 (5.0-8.5); Protein,Urine Negative (Negative); Specific Gravity, Urine >= 1.030 (1.005-1.030); Urobilinogen,Urine 0.2 EU/dl (0.2)
--- NOTE | 2021-09-11 15:23 | PC.NURSE ---
ED MD at bedside for update on POC
== END 2021-09-11 16:11 | disposition home or self-care (01) ==
PROVIDERS: Emergency Provider Emergency Medicine
DX: K52.9 Noninfective gastroenteritis and colitis, unspecified (principal); I10 Essential (primary) hypertension; E78.5 Hyperlipidemia, unspecified; Z87.891 Personal history of nicotine dependence
CPT/HCPCS: 74176; 80053; 81001; 83690; 85007; 85025; 93005; 96365; 96366; 96367; 96375; 99283; 99284; C9803; J2405; U0003; U0005

== ENCOUNTER 2022-06-17 10:07 | Emergency (ER) | payer MEDICARE, BC, OTHER, SELFPAY ==
[2022-06-17 10:18] VITALS: BP 132/73; PULSE 54; RESP 18; TEMP 36.6; O2SAT 95; BMI 29.5
--- NOTE | 2022-06-17 10:20 | XR_ITS ---
FINAL REPORT CLINICAL HISTORY: Pt fell x 1 wk ago, pain @ Rt lwr rib margin. C/o pain on inspiration. FINDINGS: Five views of the right ribs were obtained. There is a mildly displaced fracture of the right 10th rib. There is no pleural fluid collection or pneumothorax. A single view of the chest demonstrates atelectasis in the lung bases. The lungs are underinflated. 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 IMPRESSION: Displaced right 10th rib fracture without pneumothorax. Reviewed, Interpreted and Dictated by Rohit Dunaway MD Transcribed by Ganesh White Authenticated and [facility]
--- NOTE | 2022-06-17 10:20 | PC.NURSE ---
RADIOLOGY NOTIFIED OF XR ORDER
[2022-06-17 10:40] VITALS: BP 132/73; PULSE 54; RESP 18; TEMP 36.6; O2SAT 95; BMI 29.3
--- NOTE | 2022-06-17 10:54 | EXP.UTC ---
Discharge Plan Disposition Patient Disposition: Home, Self-Care Condition: Good Prescriptions Prescriptions: No Action tramadol 50 MG tablet 50 mg PO Q6HP PRN (Reason: Moderate Pain) Qty: 12 0RF tamsulosin 0.4 MG capsule 0.4 mg PO HS Qty: 10 0RF ondansetron 4 MG tablet,disintegrating 4 mg PO BIDP PRN (Reason: Nausea) Qty: 10 0RF Referrals Follow up/Referrals: Provider,Referral, MD [Primary Care Provider] - See instructions Activity Restrictions/Add. Instructions Additional Instructions/Restrictions: *Ibuprofen colton 6 hours with meal as needed for pain/inflammation if you can take it *Not additional anti-inflammatory like motrin, aleve, advil with the above amount of ibuprofen. You can still take Tylenol every 4 hours as needed if you need something else for pain *Ice 20 minutes every 2 hours for the first 48 hours after the initial injury followed by moist heat every 20 minutes 3-4 times a day to affected area Make sure to be active, cough and take deep breaths Lidocaine patches may help with pain use as directed from [facility] *Keep this area active, no movement leads to more stiffness, However take it easy and avoid heavy lifting pushing or pulling *Follow up with you family doctor if no improvement for further treatment Clinical Impressions Clinical Impression: Fracture, rib Qualifiers: Encounter type: initial encounter Rib fracture type: single rib Fracture type: closed Laterality: right Qualified Code(s): S22.31XA - Fracture of one rib, right side, initial encounter for closed fracture Instructions Patient Instructions: Rib Fracture, DI for Rib Fracture Discharge ED Provider: Migdalia Cohen [facility] General Stated complaint: [id number]/10@home pain in Rt side/rib Mode of Arrival: Ambulatory Source of Information: Patient Limitations: No Limitations Time Seen by Provider: 06/17/22 10:54 Description of Symptoms (Recalled from Triage Doc. by RN): PATIENT C/O RIGHT RIB PAIN AFTER FALLING ON 06/10. DENIES ANY OTHER INJURIES HEENT Symptoms (Recalled from RN notes): No Resp Symptoms (Recalled from RN notes): No Skin Symptoms (Recalled from RN notes): No MS Symptoms (Recalled from RN notes): Yes Functional Status (Recalled from RN notes): WNL History of Present Illness Provider Complaint: Patient states that he was at family house on when he tripped and fell and his elbow went into his right side of his ribs State that ever since then he has been having pain in his ribs that is worse with movement and cough States that today he was still hurting so he came in to get it checke dout Related Data Previous Rx's Medication Instructions Recorded tamsulosin 0.4 mg capsule 0.4 mg PO HS ##10 05/28/20 tramadol 50 mg tablet 50 mg PO Q6HP PRN Moderate Pain 05/28/20 #12 tabs ondansetron 4 mg disintegrating 4 mg PO BIDP PRN Nausea #10 tabs 09/11/21 tablet Allergies Allergy/AdvReac Type Severity Reaction Status Date / Time codeine Allergy Verified 06/17/22 10:56 hydrocodone Allergy Verified 06/17/22 10:56 oxycodone Allergy Verified 06/17/22 10:56 Sulfa (Sulfonamide Allergy Verified 06/17/22 10:56 Antibiotics) Worker's Comp Is this a Worker's Comp case?: No [facility] Disclaimer: The information contained in this section may have been updated after the patient was seen, as this information can be updated by other users. Social History Smoking Status: Former smoker alcohol intake: current current occupational status: retired Travel in the last 8 weeks: None household members: spouse housing: house ROS Obtained: Yes All systems reviewed & no additional complaints except as documented and Yes Systems reviewed as appropriate & no additional complaints except as documented Constitutional Constitutional: Reports system reviewed and no additional complaints, except as documented and Reports as per HPI Cardiovascular Cardiovascular: Reports system reviewed and no additiona
[2022-06-17 11:47] VITALS: BP 132/73; PULSE 54; RESP 18; TEMP 36.6; O2SAT 95
== END 2022-06-17 11:48 | disposition home or self-care (01) ==
PROVIDERS: Emergency Provider Nurse Practitioner
DX: S22.31XA Fracture of one rib, right side, initial encounter for closed fracture (principal); W19.XXXA Unspecified fall, initial encounter; Z88.2 Allergy status to sulfonamides; Z88.6 Allergy status to analgesic agent; Z87.891 Personal history of nicotine dependence
CPT/HCPCS: 71101; 99212; G0463

== ENCOUNTER 2024-07-16 13:00 | Outpatient (RCR) | payer OTHER, MEDICARE, BC, SELFPAY | END 2024-07-16 23:59 | disposition home or self-care (01) | LOC: PT 13:00 | PROVIDERS: Visit Provider Physician Assistant | DX: M25.511 Pain in right shoulder (principal); Z96.611 Presence of right artificial shoulder joint | CPT/HCPCS: 97110; 97140; 97163; 97530 ==

== ENCOUNTER 2024-07-30 13:01 | Outpatient (RCR) | payer OTHER, MEDICARE, BC, SELFPAY | END 2024-07-30 23:59 | disposition home or self-care (01) | LOC: PT 13:01 | PROVIDERS: Visit Provider Physician Assistant | DX: Z96.611 Presence of right artificial shoulder joint (principal) | CPT/HCPCS: 97110; 97530 ==